=== PATIENT | female | born 1955 | race Caucasian/White ===

== ENCOUNTER 2017-05-27 13:33 | Day surgery (SDC) | payer BC ==
[2017-05-27] MEDS ORDERED: BACITRACIN/POLYMYXIN 28.35 GM OINT TOP (14:00)
[2017-05-27 14:23] LABS: ADD MAN DIFF? NO
[2017-05-27 14:25] LABS: WHITE BLOOD COUNT 7.4 10^3/ul (4.8-10.8)
[2017-05-27 14:25] LABS: BASOPHIL # 0.1 10^3/ul (0.0-0.1); BASOPHILS % 0.8 % (0.0-2.0); EOSINOPHILS # 0.1 10^3/ul (0.0-0.5); EOSINOPHILS % 1.7 % (0.0-7.0); HEMATOCRIT 38.9 % (37.0-47.0); HEMOGLOBIN 12.6 g/dl (12.0-16.0); LYMPHOCYTES # 2.6 10^3/ul (0.8-2.9); LYMPHOCYTES % 34.5 % (15.0-51.0); MEAN CORPUSCULAR HEMOGLOBIN 27.9 pg (29.0-33.0); MEAN CORPUSCULAR HGB CONC 32.4 g/dl (32.0-37.0); MEAN CORPUSCULAR VOLUME 86.1 fl (82.0-101.0); MEAN PLATELET VOLUME 10.4 fl (7.4-10.4); MONOCYTE # 0.5 10^3/ul (0.3-0.9); MONOCYTES % 7.3 % (0.0-11.0); NEUTROPHIL # 4.1 10^3/ul (1.6-7.5); NEUTROPHILS % 55.4 % (39.0-77.0); PLATELET COUNT 282 10^3/UL (140-415); RED BLOOD COUNT 4.52 10^6/ul (4.20-5.40); RED CELL DISTRIBUTION WIDTH 14.8 % (11.5-14.5)
[2017-05-27] MEDS ORDERED: MIDAZOLAM 1 MG/ML 2 ML INJ (14:34)
[2017-05-27] MEDS ORDERED: FENTAnyl 50 MCG/ML VIAL ×2 (14:34→15:40)
[2017-05-27 14:46] LABS: ALANINE AMINOTRANSFERASE 35 IU/L (13-69); ALBUMIN 4.3 g/dl (3.3-4.9); ALBUMIN/GLOBULIN RATIO 1.38; ALKALINE PHOSPHATASE 82 IU/L (42-121); ANION GAP 13 (8-16); ASPARTATE AMINO TRANSFERASE 22 IU/L (15-46); BILIRUBIN,INDIRECT 0.2 mg/dl (0-1.1); BILIRUBIN,TOTAL 0.2 mg/dl (0.2-1.3); CARBON DIOXIDE 30 mmol/L (21-31); CHLORIDE 107 mmol/L (97-110); GLUCOSE 98 mg/dl (70-220); TOTAL PROTEIN 7.4 g/dl (6.1-8.1)
[2017-05-27 14:57] LABS: BLOOD UREA NITROGEN 15 mg/dl (7-20); CALCIUM 9.2 mg/dl (8.4-10.2); CREATININE 0.83 mg/dl (0.44-1.00); POTASSIUM 4.5 mmol/L (3.5-5.1); SODIUM 145 mmol/L (135-144)
[2017-05-27 15:02] LABS: INR 0.93; PARTIAL THROMBOPLASTIN TIME 30.7 Sec (25.0-35.0); PROTIME 12.5 Sec (11.9-14.9)
[2017-05-27] MEDS: LIDOCAINE 1%/EPI 30 ML INJ (15:05)
[2017-05-27] MEDS ORDERED: morphine 10 MG INJ (15:12)
[2017-05-27] MEDS ORDERED: PROPOFOL 20 ML (17:12)
[2017-05-27] MEDS ORDERED: ROCURONIUM 50 MG INJ (17:12)
[2017-05-27] MEDS ORDERED: ONDANSETRON 4 MG INJ (17:12)
[2017-05-27] MEDS ORDERED: LIDOCAINE 2% (SDV) 5 ML INJ (17:12)
[2017-05-27] MEDS ORDERED: PROVENTIL HFA 6.7GM INHALER (17:28)
[2017-05-27] MEDS ORDERED: CEFAZOLIN 1 GM INJ (17:31)
[2017-05-27] MEDS ORDERED: OXYCODONE/ACETAMINOPHEN (5/325) TAB (18:06)
[2017-05-27] MEDS: OXYCODONE/ACETAMINOPHEN (5/325) TAB PO (18:23)
== END 2017-05-27 19:01 | disposition home or self-care (01) ==
LOC: SDS 13:33
DX: D11.0 Benign neoplasm of parotid gland (principal)
CPT/HCPCS: 42440; 80053; 85025; 85610; 85730; 88307